=== PATIENT | male | born 2000 | race Caucasian/White ===

== ENCOUNTER 2025-05-14 10:53 | Emergency (ER) | payer MEDICAID ==
[~2025-05-14] VITALS: Ht 167.6 cm; Wt 99.8 kg
[2025-05-14] MEDS ORDERED: LIDO1ADH82 TP (11:39)
[2025-05-14] MEDS ORDERED: CYCL5TAB PO (11:39)
[2025-05-14] MEDS ORDERED: METH4TAB17 PO (11:40)
[2025-05-14 12:13] VITALS: BP 152/80; TEMP 98.7; O2SAT 99
== END 2025-05-14 12:13 | disposition home or self-care (01) ==
LOC: ER 11:07
DX: S39.012A Strain of muscle, fascia and tendon of lower back, initial encounter (principal); X58.XXXA Exposure to other specified factors, initial encounter; Y93.89 Activity, other specified; Y92.89 Other specified places as the place of occurrence of the external cause; Y99.9 Unspecified external cause status